=== PATIENT | female | born 1955 | race African-American/Black ===

== ENCOUNTER 2016-08-17 10:17 | Emergency (ER) | payer OTHER ==
[~2016-08-17] VITALS: Ht 154.9 cm; Wt 74.0 kg
[~2016-08-17 10:17] MED LIST: OLME20TA14 PO
[2016-08-17 11:43] LABS: CLARITY URINE CLEAR (CLEAR); COLOR URINE YELLOW (YELLOW); GLUCOSE URINE NEGATIVE (NEGATIVE); KETONES URINE NEGATIVE (NEGATIVE); LEUKOCYTE ESTERASE URINE TRACE (NEGATIVE); NITRITE URINE NEGATIVE (NEGATIVE); OCCULT BLOOD URINE 1+ (NEGATIVE); PROTEIN URINE NEGATIVE (NEGATIVE); SPECIFIC GRAVITY URINE 1.022 (1.005-1.030); UROBILINOGEN URINE 0.2 E.U./dL (0.2-1.0)
[2016-08-17 11:52] LABS: EOSINOPHILS % 1.5 % (0.0-5.0); HEMATOCRIT. 41.4 % (36.0-48.0); LYMPHOCYTES % 20.8 % (20.0-50.0); MEAN CORPUSCULAR HEMOGLOBIN 29.5 pg (28.0-32.0); MEAN PLATELET VOLUME 8.3 fl (7.4-10.4); MONOCYTES % 9.2 % (2.0-8.0); NEUTROPHILS % 67.5 % (40.0-76.0); PLATELET 279 x1000/uL (130-400); RED BLOOD CELL COUNT 4.76 mill/uL (4.2-5.4); RED CELL DISTRIBUTION WIDTH 14.1 % (11.6-14.6)
[2016-08-17 12:21] LABS: CHLORIDE 106 mEq/L (98-107)
[2016-08-17 12:26] LABS: CARBON DIOXIDE 25 mEq/L (21-32)
[2016-08-17 12:56] VITALS: BP 126/78
== END 2016-08-17 12:59 | disposition home or self-care (01) ==
LOC: ER 11:29
DX: R06.02 Shortness of breath (principal); F41.9 Anxiety disorder, unspecified; I10 Essential (primary) hypertension; F32.9 Major depressive disorder, single episode, unspecified; Z88.0 Allergy status to penicillin; Z90.710 Acquired absence of both cervix and uterus
CPT/HCPCS: 36415; 71010; 80048; 81001; 85025; 93005; 99285

== ENCOUNTER 2016-11-24 09:14 | Emergency (ER) | payer OTHER ==
[~2016-11-24] VITALS: Ht 154.9 cm; Wt 77.0 kg
[2016-11-24] MEDS ORDERED: AMLO10TA80 PO (09:57)
[2016-11-24 10:15] VITALS: BP 144/70
== END 2016-11-24 11:53 | disposition home or self-care (01) ==
LOC: ER 10:33
DX: M54.16 Radiculopathy, lumbar region (principal); M79.605 Pain in left leg; I10 Essential (primary) hypertension; F41.9 Anxiety disorder, unspecified; Z88.0 Allergy status to penicillin; Z90.710 Acquired absence of both cervix and uterus
CPT/HCPCS: 99282

== ENCOUNTER 2017-03-31 13:04 | Emergency (ER) | payer OTHER ==
[~2017-03-31] VITALS: Ht 154.9 cm; Wt 77.0 kg
[~2017-03-31 13:04] MED LIST changes: +AMLO10TA80 PO
[2017-03-31 13:15] VITALS: BP 133/70
== END 2017-03-31 16:44 | disposition home or self-care (01) ==
LOC: ER 13:31
DX: J20.9 Acute bronchitis, unspecified (principal); M94.0 Chondrocostal junction syndrome [Tietze]; F41.9 Anxiety disorder, unspecified; I10 Essential (primary) hypertension; Z88.0 Allergy status to penicillin; Z90.710 Acquired absence of both cervix and uterus
CPT/HCPCS: 71045; 99283

== ENCOUNTER 2021-01-12 20:49 | Emergency (ER) | payer SELFPAY ==
[~2021-01-12] VITALS: Ht 154.9 cm; Wt 75.0 kg
[~2021-01-12 20:49] MED LIST changes: +OLME20TA13 PO; -OLME20TA14 PO
[2021-01-13] MEDS: CLONIDINE 0.1MG TABLET PO ONE ×2 (00:27→00:33)
[2021-01-13] MEDS: IBUPROFEN 600MG TABLET PO ONE (00:33)
[2021-01-13] MEDS ORDERED: IBUP-2028 MT (01:32)
[2021-01-13] MEDS: ACETAMINOPHEN 325MG TABLET PO ONE (01:41)
[2021-01-13 01:43] VITALS: BP 166/83
== END 2021-01-13 02:17 | disposition home or self-care (01) ==
LOC: ER 20:49
DX: I10 Essential (primary) hypertension (principal); Z88.0 Allergy status to penicillin
CPT/HCPCS: 93005; 99284